=== PATIENT | male | born 1985 | race Hispanic/Latino ===

== ENCOUNTER 2017-11-15 04:00 | Inpatient (IN) | payer OTHER ==
[~2017-11-15] VITALS: Ht 160 cm; Wt 107.5 kg
[~2017-11-15 04:00] MED LIST: DOCU-275 PO; METO25 PO; PANT40TA PO; TRAM50TA4 PO; WARF2TAB57 PO
[2017-11-15] MEDS ORDERED: CLINDAMYCIN 900 MG/D5% WATER 50 ML IV ONE (04:44)
[2017-11-15] MEDS ORDERED: SODIUM CHLORIDE 0.9% 1000ML 1,000 ML IV ONE (04:44)
[2017-11-15 04:53] LABS: BASOPHILS % (AUTO) 0.4 % (0.0-5.0); EOSINOPHILS % (AUTO) 1.4 % (0.0-8.0); HEMATOCRIT 35.6 % (42-54); LYMPHOCYTES % (AUTO) 37.3 % (21.0-51.0); MEAN CORPUSCULAR HEMOGLOBIN 28.1 pg (27.0-33.0); MEAN CORPUSCULAR HGB CONC 32.6 g/dL (32.0-36.0); MEAN CORPUSCULAR VOLUME 86.2 fL (79-99); MONOCYTES % (AUTO) 13.3 % (3.0-13.0); NEUTROPHILS % (AUTO) 47.6 % (40.0-77.0); PLATELET COUNT (AUTO) 290 K/uL (130-400); RED BLOOD CELL COUNT(AUTO) 4.13 MIL/uL (4.50-6.20); RED CELL DISTRIBUTION WIDTH 15.9 % (11.0-15.5); WHITE BLOOD COUNT (AUTO) 6.9 K/uL (4.8-10.8)
[2017-11-15 04:59] LABS: CREATININE 0.7 mg/dL (0.5-1.5); POTASSIUM 3.7 mmol/L (3.5-5.1)
[2017-11-15 05:03] LABS: INR 0.96 (0.85-1.15); PARTIAL THROMBOPLASTIN TIME 30.8 SEC (26.3-35.5); PROTHROMBIN TIME 10.1 SEC (9.6-11.6)
[2017-11-15 05:04] LABS: ALBUMIN 3.2 g/dL (3.5-5.0); BILIRUBIN,TOTAL 0.5 mg/dL (0.2-1.0)
[2017-11-15 05:08] LABS: APPEARANCE,URINE Clear (CLEAR); BILIRUBIN,URINE Negative (NEGATIVE); COLOR,URINE Yellow (YELLOW); GLUCOSE, URINE (UA) Negative (NEGATIVE); KETONES,URINE Negative (NEGATIVE); LEUKOCYTE ESTERASE ,URINE Small (NEGATIVE); NITRATE,URINE Negative (NEGATIVE); OCCULT BLOOD,URINE Negative (NEGATIVE); PH,URINE 5.5 (5.0-8.0); PROTEIN,URINE Negative (NEGATIVE)
[2017-11-15 05:18] LABS: BACTERIA,URINE None Seen /HPF (None Seen); RBC,URINE 0-1 /HPF (0-1)
[2017-11-15 05:19] LABS: MUCUS,URINE Few LPF (None Seen); SQUAMOUS EPITHELIAL CELL,UR Few /HPF (0-2)
[2017-11-15] MEDS ORDERED: TRAMADOL HCL 50 MG TABLET PO PRN (06:30)
[2017-11-15] MEDS: ZOSYN 3.375GM+NS 50ML 50 ML IV SCH ×3 (06:30→22:29)
[2017-11-15] MEDS ORDERED: CLINDAMYCIN 900 MG/D5% WATER 50 ML IV SCH ×2 (06:30→13:00)
[2017-11-15] MEDS ORDERED: ACETAMINOPHEN 325 MG TAB PO PRN (06:30)
[2017-11-15] MEDS ORDERED: WARFARIN SODIUM 5 MG TAB PO SCH ×2 (06:30→16:00)
[2017-11-15] MEDS ORDERED: SODIUM CHLORIDE 0.9% 10 ML VIAL IVP PRN (06:30)
[2017-11-15] MEDS ORDERED: VANCOMYCIN 1.5 GM in SODIUM CHLORIDE 0.9% 250 ML IV SCH (07:00)
[2017-11-15] MEDS ORDERED: TRAMADOL HCL 50 MG TABLET ONE (07:20)
[2017-11-15 07:55] VITALS: BP 137/93
[2017-11-15 08:28] LABS: BASOPHILS % (AUTO) 0.6 % (0.0-5.0); EOSINOPHILS % (AUTO) 1.3 % (0.0-8.0); HEMATOCRIT 34.2 % (42-54); LYMPHOCYTES % (AUTO) 35.9 % (21.0-51.0); MEAN CORPUSCULAR HEMOGLOBIN 28.4 pg (27.0-33.0); MEAN CORPUSCULAR VOLUME 86.1 fL (79-99); MONOCYTES % (AUTO) 10.2 % (3.0-13.0); PLATELET COUNT (AUTO) 294 K/uL (130-400); RED BLOOD CELL COUNT(AUTO) 3.97 MIL/uL (4.50-6.20); WHITE BLOOD COUNT (AUTO) 7.4 K/uL (4.8-10.8)
[2017-11-15 08:39] LABS: INR 0.98 (0.85-1.15); PARTIAL THROMBOPLASTIN TIME 30.5 SEC (26.3-35.5); PROTHROMBIN TIME 10.3 SEC (9.6-11.6)
[2017-11-15 08:40] LABS: ALBUMIN 3.2 g/dL (3.5-5.0); BILIRUBIN,TOTAL 0.6 mg/dL (0.2-1.0); CREATININE 0.8 mg/dL (0.5-1.5); CRP QUANTITATIVE 39.6 mg/L (0.00-9.0); POTASSIUM 3.9 mmol/L (3.5-5.1)
[2017-11-15] MEDS ORDERED: COMPOUND IV REFRIGERATED 1 EACH IVSOLN MISC PRN (08:45)
[2017-11-15] MEDS ORDERED: VANCOMYCIN PROTOCOL PER PHARMACY IV SCH (08:45)
[2017-11-15] MEDS ORDERED: ENOXAPARIN SODIUM 1 MG/KG SQ SCH (09:00)
[2017-11-15] MEDS ORDERED: ENOXAPARIN SODIUM 120 MG/0.8ML SQ SCH (09:00)
[2017-11-15] MEDS: 1/2 NORMAL SALINE 1,000 ML IV SCH ×4 (09:35→21:30)
[2017-11-15] MEDS: VANCOMYCIN 1.5 GM in SODIUM CHLORIDE 0.9% 250 ML IV SCH ×2 (09:39→20:32)
[2017-11-15] MEDS: METOPROLOL TARTRATE 25 MG TAB PO SCH ×2 (09:40→20:32)
[2017-11-15] MEDS: DOCUSATE SODIUM 100 MG CAP PO SCH ×2 (09:40→20:33)
[2017-11-15] MEDS: ENOXAPARIN SODIUM 100 MG/1 ML SQ SCH ×2 (09:40→20:33)
[2017-11-15] MEDS: PANTOPRAZOLE SODIUM 40 MG TABLET.DR PO SCH (09:40)
[2017-11-15] MEDS ORDERED: SODIUM CHLORIDE 0.9% 50 ML IV ONE ×2 (11:32→22:21)
[2017-11-15 11:34] VITALS: BP 131/75
[2017-11-15 16:22] VITALS: BP 105/62
[2017-11-15 20:16] VITALS: BP 135/83
[2017-11-16 00:16] VITALS: BP 114/72
[2017-11-16] MEDS: 1/2 NORMAL SALINE 1,000 ML IV SCH ×4 (01:30→13:30)
[2017-11-16 04:20] VITALS: BP 113/61
[2017-11-16] MEDS ORDERED: SODIUM CHLORIDE 0.9% 50 ML IV ONE (05:36)
[2017-11-16] MEDS: ZOSYN 3.375GM+NS 50ML 50 ML IV SCH (06:32)
[2017-11-16] MEDS: PANTOPRAZOLE SODIUM 40 MG TABLET.DR PO SCH (06:33)
[2017-11-16 08:01] VITALS: BP 128/73
[2017-11-16] MEDS: METOPROLOL TARTRATE 25 MG TAB PO SCH ×2 (10:25→20:19)
[2017-11-16] MEDS: DOCUSATE SODIUM 100 MG CAP PO SCH ×2 (10:25→20:19)
[2017-11-16] MEDS: DOXYCYCLINE HYCLATE 100 MG TABLET PO SCH ×2 (10:25→20:19)
[2017-11-16] MEDS: CEPHALEXIN 500 MG CAPSULE PO SCH ×2 (10:25→17:49)
[2017-11-16 11:45] VITALS: BP 134/69
[2017-11-16 12:31] LABS: INR 1.08 (0.85-1.15); PROTHROMBIN TIME 11.3 SEC (9.6-11.6)
[2017-11-16] MEDS: ENOXAPARIN SODIUM 100 MG/1 ML SQ SCH ×2 (12:36→20:22)
[2017-11-16 15:58] VITALS: BP 130/71
[2017-11-16 20:32] VITALS: BP 136/88
[2017-11-17] VITALS (7 sets, daily range): BP systolic 119–135; BP diastolic 66–91
[2017-11-17] MEDS: CEPHALEXIN 500 MG CAPSULE PO SCH ×3 (00:59→17:05)
[2017-11-17] MEDS: PANTOPRAZOLE SODIUM 40 MG TABLET.DR PO SCH (06:31)
[2017-11-17 10:05] LABS: INR 1.02 (0.85-1.15); PROTHROMBIN TIME 10.7 SEC (9.6-11.6)
[2017-11-17] MEDS: DOXYCYCLINE HYCLATE 100 MG TABLET PO SCH ×2 (10:58→21:02)
[2017-11-17] MEDS: DOCUSATE SODIUM 100 MG CAP PO SCH ×2 (10:58→21:02)
[2017-11-17] MEDS: METOPROLOL TARTRATE 25 MG TAB PO SCH ×2 (10:58→21:02)
[2017-11-17] MEDS: ENOXAPARIN SODIUM 100 MG/1 ML SQ SCH ×2 (10:58→21:04)
[2017-11-18] MEDS: CEPHALEXIN 500 MG CAPSULE PO SCH ×3 (02:29→17:43)
[2017-11-18 03:50] VITALS: BP 130/92
[2017-11-18 04:30] LABS: EOSINOPHILS % (AUTO) 2.6 % (0.0-8.0); HEMATOCRIT 37.1 % (42-54); LYMPHOCYTES % (AUTO) 45.9 % (21.0-51.0); MEAN CORPUSCULAR HEMOGLOBIN 29.2 pg (27.0-33.0); MEAN CORPUSCULAR HGB CONC 34.3 g/dL (32.0-36.0); MEAN CORPUSCULAR VOLUME 85.3 fL (79-99); MONOCYTES % (AUTO) 6.7 % (3.0-13.0); NEUTROPHILS % (AUTO) 43.8 % (40.0-77.0); NUCLEATED RED BLOOD CELLS 0.2 % (0.0-0.19); PLATELET COUNT (AUTO) 337 K/uL (130-400); RED BLOOD CELL COUNT(AUTO) 4.35 MIL/uL (4.50-6.20); RED CELL DISTRIBUTION WIDTH 15.6 % (11.0-15.5); WHITE BLOOD COUNT (AUTO) 4.9 K/uL (4.8-10.8)
[2017-11-18 04:38] LABS: CREATININE 0.8 mg/dL (0.5-1.5); POTASSIUM 3.3 mmol/L (3.5-5.1)
[2017-11-18] MEDS: PANTOPRAZOLE SODIUM 40 MG TABLET.DR PO SCH (06:14)
[2017-11-18 08:03] VITALS: BP 133/83
[2017-11-18] MEDS: DOCUSATE SODIUM 100 MG CAP PO SCH ×2 (08:06→22:01)
[2017-11-18] MEDS: METOPROLOL TARTRATE 25 MG TAB PO SCH ×2 (08:07→22:01)
[2017-11-18] MEDS: DOXYCYCLINE HYCLATE 100 MG TABLET PO SCH ×2 (08:07→22:02)
[2017-11-18] MEDS: ENOXAPARIN SODIUM 100 MG/1 ML SQ SCH ×2 (08:08→22:16)
[2017-11-18] MEDS ORDERED: POTASSIUM CHLORIDE 20 MEQ ERTAB PO PRN (08:30)
[2017-11-18] MEDS ORDERED: LIDOCAINE HCL-MPF 1% 2ML VIAL IVP PRN (08:30)
[2017-11-18] MEDS ORDERED: POTASSIUM CHLORIDE 20MEQ/100ML 100 ML IV PRN (08:30)
[2017-11-18 09:04] LABS: INR 0.94 (0.85-1.15); PROTHROMBIN TIME 9.9 SEC (9.6-11.6)
[2017-11-18 11:10] VITALS: BP 109/72
[2017-11-18] MEDS: POTASSIUM CHLORIDE 10% ELIXIR 20 MEQ/15 ML UDCUP PO PRN ×2 (12:33→15:37)
[2017-11-18 16:25] VITALS: BP 103/60
[2017-11-18] MEDS: HONEY 1 APPL/ML TUBE TP SCH (18:02)
[2017-11-18 19:10] VITALS: BP 137/86
[2017-11-18] MEDS: WARFARIN SODIUM 1 MG TAB PO SCH (22:16)
[2017-11-18 23:10] VITALS: BP 137/80
[2017-11-19] MEDS: CEPHALEXIN 500 MG CAPSULE PO SCH ×3 (01:59→17:21)
[2017-11-19 03:05] VITALS: BP 129/85
[2017-11-19] MEDS: PANTOPRAZOLE SODIUM 40 MG TABLET.DR PO SCH (06:21)
[2017-11-19 07:30] VITALS: BP 121/76
[2017-11-19] MEDS: DOCUSATE SODIUM 100 MG CAP PO SCH ×2 (09:00→21:00)
[2017-11-19] MEDS: DOXYCYCLINE HYCLATE 100 MG TABLET PO SCH ×2 (10:16→22:41)
[2017-11-19] MEDS: METOPROLOL TARTRATE 25 MG TAB PO SCH ×2 (10:17→22:41)
[2017-11-19] MEDS: ENOXAPARIN SODIUM 100 MG/1 ML SQ SCH ×2 (10:17→22:46)
[2017-11-19] MEDS: HONEY 1 APPL/ML TUBE TP SCH (10:18)
[2017-11-19 11:21] VITALS: BP 123/66
[2017-11-19 16:00] VITALS: BP 132/69
[2017-11-19] MEDS: WARFARIN SODIUM 1 MG TAB PO SCH (16:00)
[2017-11-19] MEDS ORDERED: WARFARIN SODIUM 5 MG TAB ONE (17:05)
[2017-11-19] MEDS ORDERED: WARFARIN SODIUM 5 MG TAB PO SCH (17:15)
[2017-11-19 20:00] VITALS: BP 142/93
[2017-11-20] MEDS: CEPHALEXIN 500 MG CAPSULE PO SCH ×3 (00:03→16:52)
[2017-11-20 00:06] VITALS: BP 119/71
[2017-11-20 04:32] LABS: BASOPHILS % (AUTO) 0.7 % (0.0-5.0); EOSINOPHILS % (AUTO) 2.4 % (0.0-8.0); LYMPHOCYTES % (AUTO) 43.9 % (21.0-51.0); MEAN CORPUSCULAR HEMOGLOBIN 29.1 pg (27.0-33.0); MEAN CORPUSCULAR HGB CONC 33.7 g/dL (32.0-36.0); MEAN CORPUSCULAR VOLUME 86.2 fL (79-99); MONOCYTES % (AUTO) 8.8 % (3.0-13.0); NEUTROPHILS % (AUTO) 44.2 % (40.0-77.0); NUCLEATED RED BLOOD CELLS 0.1 % (0.0-0.19); PLATELET COUNT (AUTO) 338 K/uL (130-400); RED CELL DISTRIBUTION WIDTH 15.4 % (11.0-15.5); WHITE BLOOD COUNT (AUTO) 5.8 K/uL (4.8-10.8)
[2017-11-20 04:34] VITALS: BP 140/77
[2017-11-20 04:40] LABS: INR 0.92 (0.85-1.15); PROTHROMBIN TIME 9.7 SEC (9.6-11.6)
[2017-11-20 04:51] LABS: ALBUMIN 3.3 g/dL (3.5-5.0); BILIRUBIN,TOTAL 0.3 mg/dL (0.2-1.0); CREATININE 0.7 mg/dL (0.5-1.5); POTASSIUM 3.7 mmol/L (3.5-5.1); TOTAL PROTEIN, SERUM 8.1 g/dL (6.0-8.3)
[2017-11-20] MEDS: PANTOPRAZOLE SODIUM 40 MG TABLET.DR PO SCH (06:39)
[2017-11-20 07:38] VITALS: BP 147/83
[2017-11-20] MEDS: HONEY 1 APPL/ML TUBE TP SCH (09:00)
[2017-11-20] MEDS: DOCUSATE SODIUM 100 MG CAP PO SCH ×2 (09:00→23:06)
[2017-11-20] MEDS: ENOXAPARIN SODIUM 100 MG/1 ML SQ SCH ×2 (10:16→23:08)
[2017-11-20] MEDS: DOXYCYCLINE HYCLATE 100 MG TABLET PO SCH ×2 (10:16→23:06)
[2017-11-20] MEDS: METOPROLOL TARTRATE 25 MG TAB PO SCH ×2 (10:17→23:06)
[2017-11-20 11:47] VITALS: BP 141/79
[2017-11-20] MEDS ORDERED: WARFARIN SODIUM 7.5 MG TAB PO ONE (14:30)
[2017-11-20 16:00] VITALS: BP 137/71
[2017-11-20] MEDS ORDERED: WARFARIN SODIUM 5 MG TAB PO SCH (16:00)
[2017-11-20] MEDS ORDERED: WARFARIN SODIUM 7.5 MG TAB PO SCH (16:15)
[2017-11-20] MEDS ORDERED: WARFARIN SODIUM 2.5 MG TAB ONE (17:42)
[2017-11-20] MEDS ORDERED: WARFARIN SODIUM 5 MG TAB ONE (17:43)
[2017-11-20 19:53] VITALS: BP 116/89
[2017-11-21] VITALS (7 sets, daily range): BP systolic 118–139; BP diastolic 83–89
[2017-11-21] MEDS: CEPHALEXIN 500 MG CAPSULE PO SCH ×3 (01:26→16:56)
[2017-11-21 05:37] LABS: BASOPHILS % (AUTO) 0.6 % (0.0-5.0); HEMATOCRIT 36.6 % (42-54); MEAN CORPUSCULAR HGB CONC 33.9 g/dL (32.0-36.0); MEAN CORPUSCULAR VOLUME 85.7 fL (79-99); MONOCYTES % (AUTO) 8.8 % (3.0-13.0); NEUTROPHILS % (AUTO) 40.6 % (40.0-77.0); NUCLEATED RED BLOOD CELLS 0.1 % (0.0-0.19); PLATELET COUNT (AUTO) 297 K/uL (130-400); RED BLOOD CELL COUNT(AUTO) 4.28 MIL/uL (4.50-6.20); RED CELL DISTRIBUTION WIDTH 15.4 % (11.0-15.5); WHITE BLOOD COUNT (AUTO) 6.9 K/uL (4.8-10.8)
[2017-11-21 05:44] LABS: INR 1.05 (0.85-1.15)
[2017-11-21 05:45] LABS: CREATININE 0.8 mg/dL (0.5-1.5); POTASSIUM 3.6 mmol/L (3.5-5.1)
[2017-11-21] MEDS: PANTOPRAZOLE SODIUM 40 MG TABLET.DR PO SCH (06:51)
[2017-11-21] MEDS: HONEY 1 APPL/ML TUBE TP SCH (09:23)
[2017-11-21] MEDS: ENOXAPARIN SODIUM 100 MG/1 ML SQ SCH ×2 (09:23→20:36)
[2017-11-21] MEDS: DOCUSATE SODIUM 100 MG CAP PO SCH ×2 (09:23→20:35)
[2017-11-21] MEDS: DOXYCYCLINE HYCLATE 100 MG TABLET PO SCH ×2 (09:23→20:35)
[2017-11-21] MEDS: METOPROLOL TARTRATE 25 MG TAB PO SCH ×2 (09:23→20:35)
[2017-11-21] MEDS ORDERED: WARFARIN SODIUM 7.5 MG TAB PO SCH (16:00)
[2017-11-22] MEDS: CEPHALEXIN 500 MG CAPSULE PO SCH ×3 (00:49→17:09)
[2017-11-22 04:12] VITALS: BP 149/85
[2017-11-22 04:32] LABS: ALBUMIN 3.7 g/dL (3.5-5.0); BILIRUBIN,TOTAL 0.3 mg/dL (0.2-1.0); CREATININE 0.9 mg/dL (0.5-1.5); INR 1.15 (0.85-1.15); POTASSIUM 3.7 mmol/L (3.5-5.1); TOTAL PROTEIN, SERUM 8.8 g/dL (6.0-8.3)
[2017-11-22 04:42] LABS: BASOPHILS % (AUTO) 0.5 % (0.0-5.0); HEMATOCRIT 39.9 % (42-54); LYMPHOCYTES % (AUTO) 58.4 % (21.0-51.0); MEAN CORPUSCULAR HEMOGLOBIN 28.8 pg (27.0-33.0); MEAN CORPUSCULAR HGB CONC 33.5 g/dL (32.0-36.0); MONOCYTES % (AUTO) 7.3 % (3.0-13.0); NEUTROPHILS % (AUTO) 31.8 % (40.0-77.0); NUCLEATED RED BLOOD CELLS 0.1 % (0.0-0.19); PLATELET COUNT (AUTO) 355 K/uL (130-400); RED BLOOD CELL COUNT(AUTO) 4.64 MIL/uL (4.50-6.20); RED CELL DISTRIBUTION WIDTH 15.7 % (11.0-15.5); WHITE BLOOD COUNT (AUTO) 9.7 K/uL (4.8-10.8)
[2017-11-22] MEDS: PANTOPRAZOLE SODIUM 40 MG TABLET.DR PO SCH (06:32)
[2017-11-22] MEDS: DOXYCYCLINE HYCLATE 100 MG TABLET PO SCH ×2 (07:55→20:54)
[2017-11-22] MEDS: DOCUSATE SODIUM 100 MG CAP PO SCH ×2 (07:55→20:54)
[2017-11-22] MEDS: METOPROLOL TARTRATE 25 MG TAB PO SCH ×2 (07:55→20:54)
[2017-11-22 08:00] VITALS: BP 145/89
[2017-11-22] MEDS: ENOXAPARIN SODIUM 100 MG/1 ML SQ SCH ×2 (08:41→20:55)
[2017-11-22] MEDS: HONEY 1 APPL/ML TUBE TP SCH (09:00)
[2017-11-22 11:00] VITALS: BP 124/44
[2017-11-22 16:00] VITALS: BP 119/63
[2017-11-22] MEDS: WARFARIN SODIUM 7.5 MG TAB PO SCH (17:09)
[2017-11-22 19:20] VITALS: BP 141/97
[2017-11-23] VITALS (7 sets, daily range): BP systolic 105–134; BP diastolic 51–92
[2017-11-23] MEDS: CEPHALEXIN 500 MG CAPSULE PO SCH ×3 (00:24→17:41)
[2017-11-23 04:22] LABS: HEMOGLOBIN A1C 4.6 % (4.0-6.0)
[2017-11-23 04:26] LABS: INR 1.38 (0.85-1.15); PARTIAL THROMBOPLASTIN TIME 41.4 SEC (26.3-35.5); PROTHROMBIN TIME 14.4 SEC (9.6-11.6)
[2017-11-23] MEDS: PANTOPRAZOLE SODIUM 40 MG TABLET.DR PO SCH (06:41)
[2017-11-23] MEDS: ENOXAPARIN SODIUM 100 MG/1 ML SQ SCH ×2 (10:30→20:37)
[2017-11-23] MEDS: METOPROLOL TARTRATE 25 MG TAB PO SCH ×2 (10:30→20:36)
[2017-11-23] MEDS: HONEY 1 APPL/ML TUBE TP SCH (10:31)
[2017-11-23] MEDS: DOXYCYCLINE HYCLATE 100 MG TABLET PO SCH ×2 (10:31→20:36)
[2017-11-23] MEDS: DOCUSATE SODIUM 100 MG CAP PO SCH ×2 (10:31→20:36)
[2017-11-23] MEDS: WARFARIN SODIUM 7.5 MG TAB PO SCH (17:41)
[2017-11-24] MEDS: CEPHALEXIN 500 MG CAPSULE PO SCH ×2 (00:05→09:06)
[2017-11-24 03:30] VITALS: BP 121/85
[2017-11-24 05:00] LABS: INR 1.87 (0.85-1.15); PARTIAL THROMBOPLASTIN TIME 43.7 SEC (26.3-35.5); PROTHROMBIN TIME 19.4 SEC (9.6-11.6)
[2017-11-24] MEDS: PANTOPRAZOLE SODIUM 40 MG TABLET.DR PO SCH (06:37)
[2017-11-24 07:38] VITALS: BP 123/78
[2017-11-24] MEDS: DOCUSATE SODIUM 100 MG CAP PO SCH (09:06)
[2017-11-24] MEDS: DOXYCYCLINE HYCLATE 100 MG TABLET PO SCH (09:06)
[2017-11-24] MEDS: METOPROLOL TARTRATE 25 MG TAB PO SCH (09:06)
[2017-11-24] MEDS: ENOXAPARIN SODIUM 100 MG/1 ML SQ SCH (09:07)
[2017-11-24] MEDS: HONEY 1 APPL/ML TUBE TP SCH (09:10)
[2017-11-24 11:11] VITALS: BP 117/76
[2017-11-24] MEDS ORDERED: DOXY100T2 PO (12:08)
[2017-11-24] MEDS ORDERED: CEPH500C2 PO (12:08)
[2017-11-24] MEDS ORDERED: WARF2TAB57 PO (12:08)
[2017-11-24] MEDS ORDERED: METO25 PO (12:08)
[2017-11-24] MEDS ORDERED: WARF7.5T23 PO (12:08)
== END 2017-11-24 16:00 | disposition home or self-care (01) | DRG 603 ==
LOC: EDH 04:00 → EDHIP 04:01 → 4BH 07:49
PROVIDERS: ADMIT Hospitalist; ATTEND Hospitalist
DX: L02.211 Cutaneous abscess of abdominal wall (principal); Z68.41 Body mass index [BMI] 40.0-44.9, adult; D68.59 Other primary thrombophilia; E11.9 Type 2 diabetes mellitus without complications; E66.01 Morbid (severe) obesity due to excess calories; E78.5 Hyperlipidemia, unspecified; I11.0 Hypertensive heart disease with heart failure; I35.1 Nonrheumatic aortic (valve) insufficiency; I50.9 Heart failure, unspecified; K58.9 Irritable bowel syndrome, unspecified; L03.311 Cellulitis of abdominal wall; Z59.9 Problem related to housing and economic circumstances, unspecified; Z79.01 Long term (current) use of anticoagulants; Z79.84 Long term (current) use of oral hypoglycemic drugs; Z95.2 Presence of prosthetic heart valve; Z82.49 Family history of ischemic heart disease and other diseases of the circulatory system; Z82.5 Family history of asthma and other chronic lower respiratory diseases; Z82.0 Family history of epilepsy and other diseases of the nervous system; Z83.3 Family history of diabetes mellitus
CPT/HCPCS: 36415; 80048; 80053; 81001; 83036; 83605; 85025; 85610; 85730; 86038; 86140; 87040; 87641; J1650; J2543; J3370; J3490; J7030; Q2038

== ENCOUNTER 2017-12-10 15:38 | Emergency (ER) | payer OTHER ==
[~2017-12-10 15:38] MED LIST changes: +CEPH500C2 PO; +DOXY100T2 PO; +WARF7.5T23 PO
[2017-12-10 16:06] LABS: BASOPHILS % (AUTO) 0.6 % (0.0-5.0); EOSINOPHILS % (AUTO) 1.8 % (0.0-8.0); HEMATOCRIT 39.2 % (42-54); LYMPHOCYTES % (AUTO) 37.9 % (21.0-51.0); MEAN CORPUSCULAR HGB CONC 34.2 g/dL (32.0-36.0); MEAN CORPUSCULAR VOLUME 84.8 fL (79-99); NEUTROPHILS % (AUTO) 51.7 % (40.0-77.0); NUCLEATED RED BLOOD CELLS 0.1 % (0.0-0.19); PLATELET COUNT (AUTO) 337 K/uL (130-400); RED BLOOD CELL COUNT(AUTO) 4.62 MIL/uL (4.50-6.20); RED CELL DISTRIBUTION WIDTH 14.5 % (11.0-15.5)
[2017-12-10 16:18] LABS: CREATININE 0.8 mg/dL (0.5-1.5); POTASSIUM 3.7 mmol/L (3.5-5.1)
[2017-12-10 16:22] LABS: PARTIAL THROMBOPLASTIN TIME 87.5 SEC (26.3-35.5)
[2017-12-10 16:23] LABS: ALBUMIN 3.6 g/dL (3.5-5.0); BILIRUBIN,TOTAL 0.5 mg/dL (0.2-1.0); TOTAL PROTEIN, SERUM 8.3 g/dL (6.0-8.3)
[2017-12-10 16:27] LABS: INR 5.4 (0.85-1.15); PROTHROMBIN TIME 54.9 SEC (9.6-11.6)
[2017-12-10] MEDS ORDERED: IOHEXOL-350 75 ML VIAL IV ONE (16:40)
== END 2017-12-10 18:13 | disposition home or self-care (01) ==
LOC: EDH 15:38
DX: K62.5 Hemorrhage of anus and rectum (principal); K62.89 Other specified diseases of anus and rectum; I10 Essential (primary) hypertension; E78.5 Hyperlipidemia, unspecified; Z79.899 Other long term (current) drug therapy; Z79.01 Long term (current) use of anticoagulants; Z95.4 Presence of other heart-valve replacement
CPT/HCPCS: 36415; 74177; 80053; 82270; 85025; 85610; 85730; 86850; 86900; 86901; 99285; Q9967

== ENCOUNTER 2018-06-18 16:48 | Emergency (ER) | payer OTHER ==
[2018-06-18] MEDS ORDERED: CLINDAMYCIN HCL 150 MG CAP ONE (18:11)
== END 2018-06-18 18:23 | disposition home or self-care (01) ==
LOC: EDH 16:48
DX: L02.818 Cutaneous abscess of other sites (principal); R10.84 Generalized abdominal pain; R19.7 Diarrhea, unspecified; K59.00 Constipation, unspecified; E78.5 Hyperlipidemia, unspecified; I10 Essential (primary) hypertension; K50.90 Crohn's disease, unspecified, without complications

== ENCOUNTER 2019-10-06 18:58 | Emergency (ER) | payer OTHER ==
[2019-10-06 20:12] LABS: BASOPHILS % (AUTO) 0.3 % (0.0-5.0); EOSINOPHILS % (AUTO) 1.9 % (0.0-8.0); HEMATOCRIT 42.2 % (42-54); LYMPHOCYTES % (AUTO) 26.9 % (21.0-51.0); MEAN CORPUSCULAR HEMOGLOBIN 27.3 pg (27.0-33.0); MEAN CORPUSCULAR HGB CONC 32.9 g/dL (32.0-36.0); MEAN CORPUSCULAR VOLUME 82.9 fL (79-99); MONOCYTES % (AUTO) 7.7 % (3.0-13.0); NEUTROPHILS % (AUTO) 62.9 % (40.0-77.0); PLATELET COUNT (AUTO) 352 K/uL (130-400); RED BLOOD CELL COUNT(AUTO) 5.09 MIL/uL (4.50-6.20); RED CELL DISTRIBUTION WIDTH 14.5 % (11.0-15.5); WHITE BLOOD COUNT (AUTO) 6.9 K/uL (4.8-10.8)
[2019-10-06 20:28] LABS: POTASSIUM 3.2 mmol/L (3.5-5.1)
[2019-10-06 20:32] LABS: ALBUMIN 3.6 g/dL (3.5-5.0); BILIRUBIN,TOTAL 0.5 mg/dL (0.2-1.0); TOTAL PROTEIN, SERUM 9.1 g/dL (6.0-8.3)
[2019-10-06 20:41] LABS: PROTHROMBIN TIME > 63.0 SEC (9.6-11.6)
[2019-10-06 20:42] LABS: INR > 7.00 (0.85-1.15); PARTIAL THROMBOPLASTIN TIME > 120.0 SEC (26.3-35.5)
[2019-10-06] MEDS ORDERED: PHYTONADIONE 10 MG/1 ML AMP ONE (21:02)
== END 2019-10-06 21:29 | disposition home or self-care (01) ==
LOC: EDH 18:58
DX: S50.11XA Contusion of right forearm, initial encounter (principal); R79.1 Abnormal coagulation profile; E11.9 Type 2 diabetes mellitus without complications; E78.5 Hyperlipidemia, unspecified; Z95.4 Presence of other heart-valve replacement; X58.XXXA Exposure to other specified factors, initial encounter; Y93.89 Activity, other specified; Y92.89 Other specified places as the place of occurrence of the external cause; Y99.8 Other external cause status
CPT/HCPCS: 36415; 80053; 85025; 85610; 85730; 93971; 99284; J3430

== ENCOUNTER 2022-12-12 09:31 | Inpatient (IN) | payer OTHER ==
[~2022-12-12] VITALS: Ht 170.2 cm; Wt 123.8 kg
[~2022-12-12 09:31] MED LIST changes: +DOCU-270 PO; -DOCU-275 PO
[2022-12-12] MEDS ORDERED: 0.9%NACL 1000ML 1,000 ML IV ONE (10:00)
[2022-12-12 10:14] LABS: BASOPHILS # (AUTO) 0.02 K/uL (0.00-0.20); BASOPHILS % (AUTO) 0.2 % (0.0-5.0); EOSINOPHILS % (AUTO) 1.2 % (0.0-8.0); HEMATOCRIT 35.4 % (42-54); IMMATURE GRANULOCYTE ABSOLUTE 0.02 K/uL (0-1); LYMPHOCYTES # (AUTO) 1.7 K/uL (1.0-4.8); LYMPHOCYTES % (AUTO) 19.9 % (21.0-51.0); MEAN CORPUSCULAR HEMOGLOBIN 25.5 pg (27.0-33.0); MEAN CORPUSCULAR HGB CONC 31.9 g/dL (32.0-36.0); MEAN CORPUSCULAR VOLUME 79.7 fL (79-99); MONOCYTES # (AUTO) 0.6 K/uL (0.1-1.0); NEUTROPHILS % (AUTO) 71.5 % (40.0-77.0); PLATELET COUNT (AUTO) 353 K/uL (130-400); RED BLOOD CELL COUNT(AUTO) 4.44 MIL/uL (4.50-6.20); RED CELL DISTRIBUTION WIDTH 14.4 % (11.0-15.5); WHITE BLOOD COUNT (AUTO) 8.4 K/uL (4.8-10.8)
[2022-12-12 10:26] LABS: CREATININE 0.8 mg/dL (0.5-1.5); POTASSIUM 3.4 mmol/L (3.5-5.1)
[2022-12-12] MEDS ORDERED: CEFTRIAXONE 1G VIAL IVPB ONE (10:30)
[2022-12-12 10:31] LABS: ALBUMIN 2.9 g/dL (3.5-5.0); BILIRUBIN,TOTAL 0.4 mg/dL (0.2-1.0); TOTAL PROTEIN, SERUM 8.3 g/dL (6.0-8.3)
[2022-12-12] MEDS ORDERED: POTASSIUM BICARB/CIT AC 25 MEQ TABLET.EFF PO ONE (11:00)
[2022-12-12 11:24] LABS: INR > 8.00 (0.85-1.15); PARTIAL THROMBOPLASTIN TIME 109.6 SEC (26.3-35.5); PROTHROMBIN TIME 85.8 SEC (9.6-11.6)
[2022-12-12] MEDS ORDERED: ACETAMINOPHEN 325 MG TAB PO PRN (12:00)
[2022-12-12] MEDS ORDERED: GUAIFENESIN-DM 200/20 MG 10 ML PO PRN (12:00)
[2022-12-12] MEDS ORDERED: LACTULOSE 20 GM/30 ML UDCUP PO PRN (12:00)
[2022-12-12] MEDS ORDERED: DIPHENHYDRAMINE HCL 25 MG CAPSULE PO PRN (12:00)
[2022-12-12] MEDS ORDERED: HYDRALAZINE 20MG/ML VIAL IV PRN (12:00)
[2022-12-12] MEDS ORDERED: ONDANSETRON 4MG INJ IV PRN (12:00)
[2022-12-12] MEDS ORDERED: MAG/ALUM/SIMETH 30 ML UDCUP PO PRN (12:00)
[2022-12-12] MEDS ORDERED: NITROGLYCERIN 0.4 MG SL TAB SL PRN (12:00)
[2022-12-12] MEDS ORDERED: KCL 20 MEQ ERTAB PO PRN (12:30)
[2022-12-12] MEDS ORDERED: POTASSIUM CHLORIDE 20MEQ/100ML 100 ML IV PRN (12:30)
[2022-12-12] MEDS ORDERED: POTASSIUM CHLORIDE 10% ELIXIR 20 MEQ/15 ML UDCUP PO PRN (12:30)
[2022-12-12] MEDS ORDERED: ZOSYN 3.375GM+NS 50ML 50 ML IV SCH (13:00)
[2022-12-12] MEDS ORDERED: PHYTONADIONE 10 MG in 0.9%NACL 50ML 50 ML IVPB SCH (14:00)
[2022-12-12] MEDS: ACETAMINOPHEN WITH CODEINE 1 TAB TAB PO PRN ×2 (15:12→21:46)
[2022-12-12 15:30] VITALS: O2SAT 0
[2022-12-12] MEDS: ZOSYN 3.375GM+NS 50ML 50 ML IV SCH (15:57)
[2022-12-12 16:00] VITALS: BP 127/78; PULSE 100; RESP 18
[2022-12-12] MEDS ORDERED: WARF6TAB49 PO (16:24)
[2022-12-12] MEDS ORDERED: METF-444 PO (16:25)
[2022-12-12] MEDS ORDERED: ESCI10TA PO (16:26)
[2022-12-12] MEDS ORDERED: EMTR1TAB11 PO (16:27)
[2022-12-12] MEDS ORDERED: SILD100T PO (16:28)
[2022-12-12] MEDS ORDERED: OMEP20CA12 PO (16:29)
[2022-12-12] MEDS: MORPHINE 2 MG SYG IVP PRN (16:54)
[2022-12-12 19:30] VITALS: O2SAT 97
[2022-12-12 20:00] VITALS: BP 128/70; PULSE 97; RESP 18
[2022-12-12] MEDS: FAMOTIDINE 20MG VIAL IV SCH (20:03)
[2022-12-13] VITALS (7 sets, daily range): BP systolic 100–145; BP diastolic 56–79; PULSE 81–89; RESP 16–18; O2SAT 97–98
[2022-12-13] MEDS: ZOSYN 3.375GM+NS 50ML 50 ML IV SCH ×3 (00:35→16:37)
[2022-12-13] MEDS: MORPHINE 2 MG SYG IVP PRN (05:26)
[2022-12-13 05:43] LABS: INR 1.13 (0.85-1.15)
[2022-12-13 09:35] LABS: BASOPHILS # (AUTO) 0.02 K/uL (0.00-0.20); BASOPHILS % (AUTO) 0.2 % (0.0-5.0); EOSINOPHILS # (AUTO) 0.15 K/uL (0.00-0.70); EOSINOPHILS % (AUTO) 1.8 % (0.0-8.0); HEMATOCRIT 32.5 % (42-54); IMMATURE GRANULOCYTE ABSOLUTE 0.03 K/uL (0-1); LYMPHOCYTES % (AUTO) 22.9 % (21.0-51.0); MEAN CORPUSCULAR HEMOGLOBIN 25.4 pg (27.0-33.0); MEAN CORPUSCULAR HGB CONC 31.1 g/dL (32.0-36.0); MEAN CORPUSCULAR VOLUME 81.9 fL (79-99); MONOCYTES # (AUTO) 0.6 K/uL (0.1-1.0); MONOCYTES % (AUTO) 6.6 % (3.0-13.0); NEUTROPHILS # (AUTO) 5.8 K/uL (1.8-7.7); NEUTROPHILS % (AUTO) 68.1 % (40.0-77.0); PLATELET COUNT (AUTO) 319 K/uL (130-400); RED BLOOD CELL COUNT(AUTO) 3.97 MIL/uL (4.50-6.20); RED CELL DISTRIBUTION WIDTH 14.6 % (11.0-15.5); WHITE BLOOD COUNT (AUTO) 8.5 K/uL (4.8-10.8)
[2022-12-13 09:40] LABS: CREATININE 0.7 mg/dL (0.5-1.5); POTASSIUM 3.7 mmol/L (3.5-5.1)
[2022-12-13 09:45] LABS: ALBUMIN 2.5 g/dL (3.5-5.0); BILIRUBIN,TOTAL 0.5 mg/dL (0.2-1.0); TOTAL PROTEIN, SERUM 7.3 g/dL (6.0-8.3)
[2022-12-13] MEDS ORDERED: GLUCAGON 1MG KIT 1 MG ML IM PRN (10:00)
[2022-12-13] MEDS ORDERED: DEXTROSE 50%-WATER 50 ML DISP.SYRIN IV PRN (10:00)
[2022-12-13] MEDS: FAMOTIDINE 20MG VIAL IV SCH ×2 (10:14→20:57)
[2022-12-13] MEDS: ENOXAPARIN SODIUM 120 MG/0.8ML SQ SCH ×2 (10:15→20:57)
[2022-12-13 10:22] LABS: HEMOGLOBIN A1C 5.4 % (4.0-6.0)
[2022-12-13] MEDS: INSULIN HUMULIN R 100 UNIT/ML 3ML SQ SCH ×3 (11:30→21:00)
[2022-12-13] MEDS ORDERED: WARFARIN SODIUM 2 MG TAB PO SCH (16:00)
[2022-12-13] MEDS: METOPROLOL TARTRATE 25 MG TAB PO SCH (20:57)
[2022-12-13] MEDS: CITALOPRAM 20 MG TABLET PO SCH (20:57)
[2022-12-13] MEDS: DOXYCYCLINE HYCLATE 100 MG TABLET PO SCH (20:58)
[2022-12-13] MEDS ORDERED: NON-FORMULARY MEDICATION 1 EACH (Escitalopram Oxalate (Lexapro) 10 MG) PO SCH (21:00)
[2022-12-13] MEDS: TRUVADA PO SCH (21:00)
[2022-12-14] VITALS (8 sets, daily range): BP systolic 91–130; BP diastolic 44–74; PULSE 77–86; RESP 18–20; O2SAT 94–96
[2022-12-14] MEDS: ZOSYN 3.375GM+NS 50ML 50 ML IV SCH ×4 (00:06→23:59)
[2022-12-14 05:56] LABS: HEMATOCRIT 34.9 % (42-54); MEAN CORPUSCULAR HEMOGLOBIN 25.9 pg (27.0-33.0); MEAN CORPUSCULAR HGB CONC 31.5 g/dL (32.0-36.0); MEAN CORPUSCULAR VOLUME 82.3 fL (79-99); RED BLOOD CELL COUNT(AUTO) 4.24 MIL/uL (4.50-6.20); RED CELL DISTRIBUTION WIDTH 14.5 % (11.0-15.5); WHITE BLOOD COUNT (AUTO) 7.3 K/uL (4.8-10.8)
[2022-12-14 06:05] LABS: INR 0.96 (0.85-1.15); PROTHROMBIN TIME 11.2 SEC (9.6-11.6)
[2022-12-14] MEDS: INSULIN HUMULIN R 100 UNIT/ML 3ML SQ SCH ×4 (06:18→20:13)
[2022-12-14 06:20] LABS: ALBUMIN 2.9 g/dL (3.5-5.0); BILIRUBIN,TOTAL 0.5 mg/dL (0.2-1.0); CREATININE 0.8 mg/dL (0.5-1.5); POTASSIUM 4.1 mmol/L (3.5-5.1)
[2022-12-14] MEDS: ENOXAPARIN SODIUM 120 MG/0.8ML SQ SCH ×2 (09:23→20:26)
[2022-12-14] MEDS: FAMOTIDINE 20MG VIAL IV SCH ×2 (09:23→20:10)
[2022-12-14] MEDS: DOXYCYCLINE HYCLATE 100 MG TABLET PO SCH ×2 (09:24→20:10)
[2022-12-14] MEDS: METOPROLOL TARTRATE 25 MG TAB PO SCH ×2 (09:24→20:10)
[2022-12-14] MEDS ORDERED: VANCOMYCIN PROTOCOL PER PHARMACY IV SCH (12:30)
[2022-12-14] MEDS ORDERED: VANCOMYCIN 2GM/500 ML BAG 500 ML IV ONE (13:00)
[2022-12-14] MEDS ORDERED: WARFARIN SODIUM 10 MG TABLET PO SCH (16:00)
[2022-12-14] MEDS: CITALOPRAM 20 MG TABLET PO SCH (20:10)
[2022-12-14] MEDS: TRUVADA PO SCH (20:12)
[2022-12-14] MEDS: VANCOMYCIN 1.25 GM/250 ML BAG 250 ML IV SCH (20:27)
[2022-12-15 04:03] VITALS: BP 115/83; PULSE 77; RESP 18
[2022-12-15 04:09] LABS: BASOPHILS # (AUTO) 0.02 K/uL (0.00-0.20); BASOPHILS % (AUTO) 0.4 % (0.0-5.0); EOSINOPHILS # (AUTO) 0.11 K/uL (0.00-0.70); HEMATOCRIT 33.3 % (42-54); IMMATURE GRANULOCYTE ABSOLUTE 0.03 K/uL (0-1); LYMPHOCYTES # (AUTO) 1.4 K/uL (1.0-4.8); LYMPHOCYTES % (AUTO) 25.7 % (21.0-51.0); MEAN CORPUSCULAR HEMOGLOBIN 25.9 pg (27.0-33.0); MEAN CORPUSCULAR HGB CONC 31.8 g/dL (32.0-36.0); MEAN CORPUSCULAR VOLUME 81.2 fL (79-99); MONOCYTES # (AUTO) 0.4 K/uL (0.1-1.0); MONOCYTES % (AUTO) 7.3 % (3.0-13.0); NEUTROPHILS # (AUTO) 3.5 K/uL (1.8-7.7); PLATELET COUNT (AUTO) 347 K/uL (130-400); RED CELL DISTRIBUTION WIDTH 14.6 % (11.0-15.5); WHITE BLOOD COUNT (AUTO) 5.5 K/uL (4.8-10.8)
[2022-12-15 04:20] LABS: CREATININE 0.8 mg/dL (0.5-1.5)
[2022-12-15] MEDS: VANCOMYCIN 1.25 GM/250 ML BAG 250 ML IV SCH ×4 (05:18→20:33)
[2022-12-15] MEDS: INSULIN HUMULIN R 100 UNIT/ML 3ML SQ SCH ×4 (05:33→20:35)
[2022-12-15 08:00] VITALS: BP 99/51; PULSE 70; RESP 19; O2SAT 100
[2022-12-15] MEDS: METOPROLOL TARTRATE 25 MG TAB PO SCH ×2 (09:52→20:33)
[2022-12-15] MEDS: FAMOTIDINE 20MG VIAL IV SCH ×2 (09:52→20:32)
[2022-12-15] MEDS: DOXYCYCLINE HYCLATE 100 MG TABLET PO SCH ×2 (09:52→20:32)
[2022-12-15] MEDS: ZOSYN 3.375GM+NS 50ML 50 ML IV SCH ×3 (09:53→23:37)
[2022-12-15] MEDS: ENOXAPARIN SODIUM 120 MG/0.8ML SQ SCH ×2 (09:53→20:32)
[2022-12-15 11:31] LABS: INR 1.17 (0.85-1.15); PROTHROMBIN TIME 13.4 SEC (9.6-11.6)
[2022-12-15 12:00] VITALS: BP 113/70; PULSE 74; RESP 18
[2022-12-15 16:00] VITALS: BP 120/68; PULSE 83; RESP 18
[2022-12-15 19:00] VITALS: BP 127/72; PULSE 80; RESP 18
[2022-12-15 20:00] VITALS: O2SAT 98
[2022-12-15] MEDS ORDERED: WARFARIN SODIUM 10 MG TABLET PO ONE (20:00)
[2022-12-15] MEDS: CITALOPRAM 20 MG TABLET PO SCH (20:32)
[2022-12-15] MEDS: TRUVADA PO SCH (20:34)
[2022-12-15 23:18] LABS: APPEARANCE,URINE CLEAR (CLEAR); BILIRUBIN,URINE NEGATIVE (NEGATIVE); GLUCOSE, URINE (UA) NEGATIVE (NEGATIVE); KETONES,URINE NEGATIVE (NEGATIVE); LEUKOCYTE ESTERASE ,URINE NEGATIVE Leu/uL (NEGATIVE); NITRATE,URINE NEGATIVE (NEGATIVE); OCCULT BLOOD,URINE NEGATIVE (NEGATIVE); PH,URINE 6.5 (5.0-8.0); PROTEIN,URINE NEGATIVE (NEGATIVE); UROBILINOGEN,URINE 0.2 mg/dL (0.2-1.0)
[2022-12-15 23:19] LABS: ADD UA MICROSCOPIC NO; COLOR,URINE YELLOW (YELLOW)
[2022-12-16] VITALS: BP 120/80; PULSE 72; RESP 18
[2022-12-16 03:49] LABS: BASOPHILS # (AUTO) 0.03 K/uL (0.00-0.20); BASOPHILS % (AUTO) 0.4 % (0.0-5.0); EOSINOPHILS # (AUTO) 0.15 K/uL (0.00-0.70); EOSINOPHILS % (AUTO) 2.1 % (0.0-8.0); HEMATOCRIT 37.7 % (42-54); IMMATURE GRANULOCYTE ABSOLUTE 0.04 K/uL (0-1); LYMPHOCYTES # (AUTO) 2.2 K/uL (1.0-4.8); LYMPHOCYTES % (AUTO) 29.9 % (21.0-51.0); MEAN CORPUSCULAR HEMOGLOBIN 25.7 pg (27.0-33.0); MEAN CORPUSCULAR HGB CONC 30.5 g/dL (32.0-36.0); MEAN CORPUSCULAR VOLUME 84.2 fL (79-99); MONOCYTES # (AUTO) 0.4 K/uL (0.1-1.0); MONOCYTES % (AUTO) 5.7 % (3.0-13.0); NEUTROPHILS # (AUTO) 4.5 K/uL (1.8-7.7); NEUTROPHILS % (AUTO) 61.3 % (40.0-77.0); PLATELET COUNT (AUTO) 438 K/uL (130-400); RED BLOOD CELL COUNT(AUTO) 4.48 MIL/uL (4.50-6.20); RED CELL DISTRIBUTION WIDTH 14.8 % (11.0-15.5); WHITE BLOOD COUNT (AUTO) 7.3 K/uL (4.8-10.8)
[2022-12-16 04:00] VITALS: BP 131/84; PULSE 75; RESP 18
[2022-12-16 04:00] LABS: BILIRUBIN,TOTAL 0.4 mg/dL (0.2-1.0); CREATININE 0.8 mg/dL (0.5-1.5); POTASSIUM 3.7 mmol/L (3.5-5.1); TOTAL PROTEIN, SERUM 8.8 g/dL (6.0-8.3)
[2022-12-16 04:02] LABS: INR 1.39 (0.85-1.15); PARTIAL THROMBOPLASTIN TIME 36.4 SEC (26.3-35.5); PROTHROMBIN TIME 14.8 SEC (9.6-11.6)
[2022-12-16] MEDS: INSULIN HUMULIN R 100 UNIT/ML 3ML SQ SCH ×4 (05:54→20:22)
[2022-12-16 08:00] VITALS: BP 144/92; PULSE 83; RESP 18; O2SAT 97
[2022-12-16] MEDS: FAMOTIDINE 20MG VIAL IV SCH ×2 (09:45→20:21)
[2022-12-16] MEDS: ENOXAPARIN SODIUM 120 MG/0.8ML SQ SCH ×2 (09:45→21:08)
[2022-12-16] MEDS: METOPROLOL TARTRATE 25 MG TAB PO SCH ×2 (09:45→20:20)
[2022-12-16] MEDS: DOXYCYCLINE HYCLATE 100 MG TABLET PO SCH ×2 (09:46→20:20)
[2022-12-16] MEDS: VANCOMYCIN 1.25 GM/250 ML BAG 250 ML IV SCH ×2 (09:46→18:10)
[2022-12-16 11:30] VITALS: BP 133/74; PULSE 73; RESP 17
[2022-12-16] MEDS: ZOSYN 3.375GM+NS 50ML 50 ML IV SCH ×3 (12:46→22:37)
[2022-12-16 16:00] VITALS: BP 116/73; PULSE 72; RESP 19
[2022-12-16] MEDS ORDERED: WARFARIN SODIUM 10 MG TABLET PO SCH (16:00)
[2022-12-16 20:00] VITALS: BP 138/71; PULSE 80; RESP 18; O2SAT 98
[2022-12-16] MEDS: TRUVADA PO SCH (21:00)
[2022-12-16] MEDS: CITALOPRAM 20 MG TABLET PO SCH (21:00)
[2022-12-17] VITALS (7 sets, daily range): BP systolic 121–147; BP diastolic 69–93; PULSE 70–82; RESP 16–19; O2SAT 97–98
[2022-12-17] MEDS: VANCOMYCIN 1.25 GM/250 ML BAG 250 ML IV SCH ×3 (00:44→17:51)
[2022-12-17 04:13] LABS: BASOPHILS # (AUTO) 0.03 K/uL (0.00-0.20); BASOPHILS % (AUTO) 0.4 % (0.0-5.0); EOSINOPHILS # (AUTO) 0.15 K/uL (0.00-0.70); EOSINOPHILS % (AUTO) 1.9 % (0.0-8.0); HEMATOCRIT 38.4 % (42-54); IMMATURE GRANULOCYTE ABSOLUTE 0.04 K/uL (0-1); LYMPHOCYTES # (AUTO) 2.6 K/uL (1.0-4.8); LYMPHOCYTES % (AUTO) 32.9 % (21.0-51.0); MEAN CORPUSCULAR HEMOGLOBIN 25.5 pg (27.0-33.0); MEAN CORPUSCULAR VOLUME 82.2 fL (79-99); MONOCYTES # (AUTO) 0.6 K/uL (0.1-1.0); NEUTROPHILS # (AUTO) 4.6 K/uL (1.8-7.7); NEUTROPHILS % (AUTO) 57.3 % (40.0-77.0); PLATELET COUNT (AUTO) 467 K/uL (130-400); RED BLOOD CELL COUNT(AUTO) 4.67 MIL/uL (4.50-6.20); RED CELL DISTRIBUTION WIDTH 15.1 % (11.0-15.5)
[2022-12-17 04:21] LABS: CREATININE 0.9 mg/dL (0.5-1.5); POTASSIUM 3.8 mmol/L (3.5-5.1)
[2022-12-17 04:30] LABS: INR 1.77 (0.85-1.15); PARTIAL THROMBOPLASTIN TIME 40.8 SEC (26.3-35.5); PROTHROMBIN TIME 18.6 SEC (9.6-11.6)
[2022-12-17] MEDS: INSULIN HUMULIN R 100 UNIT/ML 3ML SQ SCH ×4 (05:05→19:39)
[2022-12-17] MEDS: ZOSYN 3.375GM+NS 50ML 50 ML IV SCH ×3 (05:07→21:39)
[2022-12-17] MEDS: METOPROLOL TARTRATE 25 MG TAB PO SCH ×2 (08:17→20:03)
[2022-12-17] MEDS: FAMOTIDINE 20MG VIAL IV SCH ×2 (08:18→20:04)
[2022-12-17] MEDS: DOXYCYCLINE HYCLATE 100 MG TABLET PO SCH ×2 (08:18→20:04)
[2022-12-17] MEDS: WARFARIN SODIUM 10 MG TABLET PO SCH (20:04)
[2022-12-17] MEDS: TRUVADA PO SCH (20:05)
[2022-12-17] MEDS: CITALOPRAM 20 MG TABLET PO SCH (20:05)
[2022-12-18] MEDS: VANCOMYCIN 1.25 GM/250 ML BAG 250 ML IV SCH ×2 (00:33→09:07)
[2022-12-18 04:00] VITALS: BP 129/71; PULSE 67; RESP 17
[2022-12-18 04:43] LABS: BASOPHILS # (AUTO) 0.01 K/uL (0.00-0.20); BASOPHILS % (AUTO) 0.2 % (0.0-5.0); EOSINOPHILS # (AUTO) 0.08 K/uL (0.00-0.70); EOSINOPHILS % (AUTO) 1.3 % (0.0-8.0); IMMATURE GRANULOCYTE ABSOLUTE 0.07 K/uL (0-1); LYMPHOCYTES # (AUTO) 1.5 K/uL (1.0-4.8); LYMPHOCYTES % (AUTO) 23.9 % (21.0-51.0); MEAN CORPUSCULAR HEMOGLOBIN 28.7 pg (27.0-33.0); MEAN CORPUSCULAR HGB CONC 32.2 g/dL (32.0-36.0); MEAN CORPUSCULAR VOLUME 89.1 fL (79-99); NEUTROPHILS # (AUTO) 3.6 K/uL (1.8-7.7); NEUTROPHILS % (AUTO) 57.5 % (40.0-77.0); PLATELET COUNT (AUTO) 275 K/uL (130-400); RED BLOOD CELL COUNT(AUTO) 3.59 MIL/uL (4.50-6.20); RED CELL DISTRIBUTION WIDTH 13.4 % (11.0-15.5); WHITE BLOOD COUNT (AUTO) 6.2 K/uL (4.8-10.8)
[2022-12-18] MEDS: INSULIN HUMULIN R 100 UNIT/ML 3ML SQ SCH ×3 (05:37→16:30)
[2022-12-18 05:51] LABS: POTASSIUM 4.3 mmol/L (3.5-5.1)
[2022-12-18 05:52] LABS: CREATININE 0.8 mg/dL (0.5-1.5)
[2022-12-18] MEDS: ZOSYN 3.375GM+NS 50ML 50 ML IV SCH ×2 (06:09→15:30)
[2022-12-18 06:12] LABS: INR 2.05 (0.85-1.15); PROTHROMBIN TIME 22.7 SEC (9.6-11.6)
[2022-12-18 08:00] VITALS: BP 126/76; PULSE 53; RESP 19; O2SAT 94
[2022-12-18] MEDS: FAMOTIDINE 20MG VIAL IV SCH (09:07)
[2022-12-18] MEDS: DOXYCYCLINE HYCLATE 100 MG TABLET PO SCH (09:07)
[2022-12-18 11:44] VITALS: BP 129/71; PULSE 75; RESP 16
[2022-12-18] MEDS: METOPROLOL TARTRATE 25 MG TAB PO SCH (11:45)
[2022-12-18] MEDS ORDERED: Warfarin Sodium PO (13:54)
[2022-12-18] MEDS: WARFARIN SODIUM 10 MG TABLET PO SCH (16:36)
== END 2022-12-18 17:15 | disposition home or self-care (01) | DRG 729 ==
LOC: EDH 09:31 → EDHIP 09:32 → UNDOADMIN 12:00 → EDHIP 12:00 → 4AH 15:30
PROVIDERS: ADMIT Hospitalist; ATTEND Hospitalist
PROC: 30233K1 Transfusion of Nonautologous Frozen Plasma into Peripheral Vein, Percutaneous Approach (ICD-10-PCS; principal; 2022-12-12)
DX: N50.1 Vascular disorders of male genital organs (principal); K50.90 Crohn's disease, unspecified, without complications; Z68.41 Body mass index [BMI] 40.0-44.9, adult; T45.515A Adverse effect of anticoagulants, initial encounter; N49.2 Inflammatory disorders of scrotum; E87.6 Hypokalemia; N49.8 Inflammatory disorders of other specified male genital organs; I10 Essential (primary) hypertension; M06.9 Rheumatoid arthritis, unspecified; R79.1 Abnormal coagulation profile; E66.01 Morbid (severe) obesity due to excess calories; E78.5 Hyperlipidemia, unspecified; I35.1 Nonrheumatic aortic (valve) insufficiency; Y92.89 Other specified places as the place of occurrence of the external cause; Z79.01 Long term (current) use of anticoagulants; Z95.2 Presence of prosthetic heart valve
CPT/HCPCS: 36415; 76870; 80048; 80053; 80202; 81003; 82948; 83036; 83605; 83690; 85025; 85027; 85610; 85730; 86850; 86900; 86901; 86927; 87040; 87070; 87076; G0378; J0696; J1650; J1815; J2270; J2543; J3430; J3490; J7030; P9017; 3370; J3370